=== PATIENT | male | born 1995 | race Two or more races ===

== ENCOUNTER 2024-01-25 13:31 | Emergency (ER) | payer BC ==
[~2024-01-25] VITALS: Ht 177.8 cm; Wt 90.0 kg
[2024-01-25 13:37] VITALS: O2SAT 100
[2024-01-25 14:02] LABS: HEMATOCRIT. 49.9 % (42.0-52.0); HEMOGLOBIN. 16.7 g/dL (14.0-18.0); MEAN CORPUSCULAR HEMOGLOBIN 29.2 pg (28.0-32.0); MEAN CORPUSCULAR HGB CONC 33.3 g/dL (31.0-37.0); MEAN CORPUSCULAR VOLUME 87.5 fL (80.0-94.0); MEAN PLATELET VOLUME 7.9 fl (7.4-10.4); PLATELET 369 x1000/uL (130-400); RED BLOOD CELL COUNT 5.71 mill/uL (4.7-6.1); RED CELL DISTRIBUTION WIDTH 13.8 % (11.6-14.6); WHITE BLOOD COUNT 17.2 x1000/uL (4.5-11.0)
[2024-01-25 14:03] LABS: DIFFERENTIAL COMMENT 1
[2024-01-25 14:12] LABS: PROTHROMBIN TIME 11.2 sec (9.6-11.0)
[2024-01-25 14:16] LABS: ALANINE AMINOTRANSFERASE 24 IU/L (10-49); ALBUMIN 5.4 g/dL (3.2-4.8); ASPARTATE AMINOTRANSFERASE 19 IU/L (<34); BILIRUBIN TOTAL 0.9 mg/dL (0.1-1.0); CALCIUM 10.3 mg/dL (8.7-10.4); CARBON DIOXIDE 22 mEq/L (21-32); CHLORIDE 103 mEq/L (98-107); CREATININE 1.2 mg/dL (0.6-1.3); GLUCOSE 110 mg/dL (70-105); POTASSIUM 3.1 mEq/L (3.5-5.1); PROTEIN TOTAL 8.9 g/dL (6.0-8.3); SODIUM 139 mEq/L (136-145); UREA NITROGEN BLOOD 9 mg/dL (9-23)
[2024-01-25 14:22] LABS: PLATELET ESTIMATE NORMAL
[2024-01-25 14:34] LABS: CLARITY URINE CLEAR (CLEAR); COLOR URINE YELLOW (YELLOW); GLUCOSE URINE NEGATIVE (NEGATIVE); KETONES URINE 3+ (NEGATIVE); LEUKOCYTE ESTERASE URINE NEGATIVE (NEGATIVE); NITRITE URINE NEGATIVE (NEGATIVE); OCCULT BLOOD URINE NEGATIVE (NEGATIVE); PH URINE 8.5 (4.5-8.0); PROTEIN URINE TRACE (NEGATIVE); SPECIFIC GRAVITY URINE 1.023 (1.005-1.030)
[2024-01-25 14:47] LABS: MUCUS URINE TRACE /lpf (NONE/TRACE); SQUAMOUS EPITHELIAL CELL URINE RARE /lpf (RARE/1+)
[2024-01-25 14:48] LABS: BACTERIA URINE TRACE
[2024-01-25 14:49] LABS: RBC URINE NONE SEEN /hpf (0-2); WBC URINE 0-2 /hpf (0-2)
[2024-01-25] MEDS: ONDANSETRON 4MG ODT PO ONE (16:34)
[2024-01-25] MEDS: METOCLOPRAMIDE HCL 10MG TABLET PO ONE (16:34)
[2024-01-25] MEDS ORDERED: IBUP-1525 MT (16:45)
[2024-01-25] MEDS ORDERED: ONDA4TAB50 MT (16:45)
[2024-01-25] MEDS ORDERED: AMOX-494 MT (16:45)
[2024-01-25] MEDS ORDERED: TOPUD MT (16:45)
[2024-01-25] MEDS: POTASSIUM CHLORIDE 20MEQ/PACKET PO ONE (17:47)
[2024-01-25 17:52] VITALS: BP 151/91; PULSE 75; RESP 18; TEMP 98.1
== END 2024-01-25 17:25 | disposition home or self-care (01) ==
LOC: ER 13:31
DX: J02.9 Acute pharyngitis, unspecified (principal); R06.02 Shortness of breath; R53.1 Weakness; R42 Dizziness and giddiness
CPT/HCPCS: 99285; 71045; 80053; 81003; 83690; 85025; 85610; 36415; 93005; J8597; Q0162